=== PATIENT | female | born 1995 | race African-American/Black ===

== ENCOUNTER 2020-08-05 20:13 | Emergency (ER) | payer OTHER ==
[~2020-08-05] VITALS: Ht 157.5 cm; Wt 46.3 kg
[2020-08-05 20:40] LABS: PLATELET COUNT 282 K/uL (152-353)
[2020-08-05 20:54] LABS: POTASSIUM 3.5 mmol/L (3.6-5.2)
[2020-08-05 21:41] LABS: PARTIAL THROMBOPLASTIN TIME 30.3 SECONDS (24.5-33.6)
[2020-08-05 22:15] VITALS: BP 119/63; TEMP 98.8
== END 2020-08-05 22:15 | disposition short-term general hospital (02) ==
LOC: ED 20:23
PROVIDERS: Hospitalist
DX: K81.0 Acute cholecystitis (principal); R11.2 Nausea with vomiting, unspecified; Z03.818 Encounter for observation for suspected exposure to other biological agents ruled out
CPT/HCPCS: 36415; 80053; 81000; 81025; 82150; 83690; 85027; 85610; 85730; 87635; 96360; 96365; 96366; 96375; 99285; J1170; J1885; J1956; J2405; J3490; U0003